=== PATIENT | male | born 1985 | race Caucasian/White ===

== ENCOUNTER 2017-02-02 20:47 | Emergency (ER) | payer MEDICARE, OTHER ==
[~2017-02-02] VITALS: Ht 185.4 cm; Wt 117.9 kg
[2017-02-02 20:50] VITALS: BP 138/82
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
[2017-02-02] MEDS ORDERED: NAPR500T PO (21:30)
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
== END 2017-02-02 21:45 | disposition home or self-care (01) ==
LOC: ER 20:47
DX: S60.511A Abrasion of right hand, initial encounter (principal); S00.31XA Abrasion of nose, initial encounter; Y08.89XA Assault by other specified means, initial encounter; Y93.89 Activity, other specified; Y92.64 Mine or pit as the place of occurrence of the external cause; Y99.8 Other external cause status
CPT/HCPCS: 73130; 99284

== ENCOUNTER 2020-01-06 13:52 | Emergency (ER) | payer OTHER ==
[~2020-01-06] VITALS: Ht 185.4 cm; Wt 127.0 kg
[~2020-01-06 13:52] MED LIST: NAPR-683 PO
[2020-01-06 14:25] VITALS: BP 135/81
--- NOTE | 2020-01-06 14:56 | PHYS DOC ---
Past Medical History Past Medical History: No Pertinent History, Asthma (ALYSSA BLAIR KEG INSPECTOR) Past Surgical History: Other Additional Past Surgical Histo: R LEG FX (ALYSSA BLAIR KEG INSPECTOR) Smoking Status: Current Every Day Smoker Alcohol Use: Occasionally Drug Use: Marijuana (ALYSSA BLAIR KEG INSPECTOR) General Adult EDM: Chief Complaint: LACERATION/AVULSION HPI: HPI: Patient is a 34 year old male who presents with abrasion to left chest right above the nipple. No deformity to the nipple and no bruising noted. No pain with palpation or swelling. Patient reports that prior to arrival he was lifting a toilet when the toilet full backwards onto him and scratched his left chest. Patient is denying pain currently. Patient was concerned because he believes that he might need a suture. Patient is unsure when his last tetanus shot was. (ALYSSA BLAIR KEG INSPECTOR) Review of Systems: Review of Systems: Constitutional: Denies fever or chills. [] Eyes: Denies change in visual acuity. [] HENT: Denies nasal congestion or sore throat. [] Respiratory: Denies cough or shortness of breath. [] Cardiovascular: Denies chest pain or edema. [] GI: Denies abdominal pain, nausea, vomiting, bloody stools or diarrhea. [] : Denies dysuria. [] Musculoskeletal: Denies back pain or joint pain. [] Integument: Denies rash. Superficial laceration to left chest. [] Neurologic: Denies headache, focal weakness or sensory changes. [] Endocrine: Denies polyuria or polydipsia. [] Lymphatic: Denies swollen glands. [] Psychiatric: Denies depression or anxiety. [] (ALYSSA BLAIR KEG INSPECTOR) Heart Score: Risk Factors: Risk Factors: DM, Current or recent (<one month) smoker, HTN, HLP, family history of CAD, obesity. Risk Scores: Score 0 - 3: 2.5% MACE over next 6 weeks - Discharge Home Score 4 - 6: 20.3% MACE over next 6 weeks - Admit for Clinical Observation Score 7 - 10: 72.7% MACE over next 6 weeks - Early Invasive Strategies (ALYSSA BLAIR KEG INSPECTOR) Allergies: Allergies: Allergies Coded Allergies Type Severity Reaction Last Updated Verified No Known Drug Allergies 02/02/17 No (ALYSSA BLAIR APRN) Physical Exam: PE: Constitutional: Well developed, well nourished, no acute distress, non-toxic appearance. [] HENT: Normocephalic, atraumatic, bilateral external ears normal, oropharynx moist, no oral exudates, nose normal. [] Eyes: PERRLA, EOMI, conjunctiva normal, no discharge. [] Neck: Normal range of motion, no tenderness, supple, no stridor. [] Cardiovascular:Heart rate regular rhythm, no murmur [] Lungs & Thorax: Bilateral breath sounds clear to auscultation [] Abdomen: Bowel sounds normal, soft, no tenderness, no masses, no pulsatile antonette s. [] Skin: Warm, dry, no erythema, no rash. Superficial laceration right above the left nipple. [] Back: No tenderness, no CVA tenderness. [] Extremities: No tenderness, no cyanosis, no clubbing, ROM intact, no edema. [] Neurologic: Alert and oriented X 3, normal motor function, normal sensory function, no focal deficits noted. [] Psychologic: Affect normal, judgement normal, mood normal. [] (ALYSSA BLAIR APRN) Current Patient Data: Vital Signs: Vital Signs Date Time Temp Pulse Resp B/P (MAP) Pulse Ox O2 Delivery O2 Flow Rate FiO2 01/06/20 14:25 99.1 69 16 135/81 (99) 97 Room Air 99.1 (ALYSSA BLAIR APRN) EKG: EKG: [] (ALYSSA BLAIR APRN) Radiology/Procedures: Radiology/Procedures: [] (ALYSSA BLAIR APRN) Course & Med Decision Making: Course & Med Decision Making Pertinent Labs and Imaging studies reviewed. (See chart for details) Alert and oriented. Speaks in full complete sentences. Ambulatory with a steady gait. Edges are approximated and there is no signs of infections. The laceration is very superficial there is no depth. I am not able to pull it open. Laceration is half a centimeter long. No foreign bodies. No sutures are needed. Dermabond is not needed. Area cleaned with chlorhexidine. Patient Is given a tetanus shot in the ED. [] (ALYSSA BLAIR APRN) Geraldo Disclaimer: Dragshane Disclaimer: This electronic medical record was generated, in whole or in part, using a voice recognition dictation system. (ALYSSA BLAIR APRN) Departure Departure Impression: Primary Impression: Laceration Disposition: 01 HOME, SELF-CARE Condition: STABLE Referrals: NO PCP (PCP) Patient Instructions: Laceration Care, Adult Additional Instructions: Keep the area clean and covered. Watch for signs of infection. Follow-up with primary care doctor if needed. Justicifation of Admission Dx: Justifications for Admission: Justification of Admission Dx: N/A (ALYSSA BLAIR APRN) Attending Signature Attending Signature I have participated in the care of this patient and I have reviewed and agree with all pertinent clinical information above including history, exam, and recommendations. (HANNAH SUERO DO) ALYSSA BLAIR APRN Jan 06, 2020 14:55 HANNAH SUERO DO Jan 06, 2020 16:08
[2020-01-06] MEDS ORDERED: DIPH,PERTUSS(ACELL),TET VAC/PF 0.5 ML SYRINGE. VAX IM ONE (15:00)
== END 2020-01-06 15:08 | disposition home or self-care (01) ==
LOC: ER 13:52
DX: S21.111A Laceration without foreign body of right front wall of thorax without penetration into thoracic cavity, initial encounter (principal); R60.0 Localized edema; J45.909 Unspecified asthma, uncomplicated; F17.200 Nicotine dependence, unspecified, uncomplicated; F12.90 Cannabis use, unspecified, uncomplicated; Z98.890 Other specified postprocedural states; X50.0XXA Overexertion from strenuous movement or load, initial encounter; Y93.89 Activity, other specified; Y92.89 Other specified places as the place of occurrence of the external cause; Y99.8 Other external cause status
CPT/HCPCS: 90471; 90715; 99283

== ENCOUNTER 2020-10-30 19:55 | Emergency (ER) | payer OTHER ==
[~2020-10-30] VITALS: Ht 185.4 cm; Wt 102.3 kg
[2020-10-30] MEDS: HYDROcodone/APAP 5/325MG 1 TAB TABLET PO ONE (21:01)
[2020-10-30] MEDS: NEOMY/BACITR/POLYMYXIN OINT PACKET. TP ONE (21:02)
[2020-10-30] MEDS: LIDOCAINE 2%/EPI 1:100,000 20 ML VIAL. INJ ONE (21:02)
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
[2020-10-30] MEDS ORDERED: CEPH500C PO (22:27)
[2020-10-30] MEDS ORDERED: HYDR-2761 PO (22:27)
[2020-10-30 22:30] VITALS: BP 122/67
== END 2020-10-30 22:30 | disposition home or self-care (01) ==
LOC: ER 19:55
DX: S01.111A Laceration without foreign body of right eyelid and periocular area, initial encounter (principal); S60.511A Abrasion of right hand, initial encounter; S20.211A Contusion of right front wall of thorax, initial encounter; S80.211A Abrasion, right knee, initial encounter; J45.909 Unspecified asthma, uncomplicated; F17.200 Nicotine dependence, unspecified, uncomplicated; F12.90 Cannabis use, unspecified, uncomplicated; Z98.890 Other specified postprocedural states; W22.8XXA Striking against or struck by other objects, initial encounter; Y93.89 Activity, other specified; Y92.89 Other specified places as the place of occurrence of the external cause; Y99.8 Other external cause status
CPT/HCPCS: 12011; 70450; 71101; 72125; 99285; J3490

== ENCOUNTER 2020-11-08 18:27 | Emergency (ER) | payer OTHER ==
[~2020-11-08] VITALS: Ht 177.8 cm; Wt 90.1 kg
[~2020-11-08 18:27] MED LIST changes: +CEPH500C PO; +HYDR-2761 PO
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
[2020-11-08 19:40] VITALS: BP 134/72
== END 2020-11-08 19:47 | disposition home or self-care (01) ==
LOC: ER 18:27
DX: S01.81XD Laceration without foreign body of other part of head, subsequent encounter (principal); J45.909 Unspecified asthma, uncomplicated; F17.200 Nicotine dependence, unspecified, uncomplicated; X58.XXXD Exposure to other specified factors, subsequent encounter
CPT/HCPCS: 99281

== ENCOUNTER 2021-01-15 17:52 | Emergency (ER) | payer OTHER ==
[~2021-01-15] VITALS: Ht 182.9 cm; Wt 109.1 kg
[2021-01-15] MEDS ORDERED: predniSONE 10 MG TABLET PO ONE (19:00)
[2021-01-15 19:35] VITALS: BP 127/75
--- NOTE | 2021-01-15 19:52 | RAD ---
Exam: CT maxillofacial without contrast INDICATION: Trauma to nose, bee sting TECHNIQUE: Sequential axial images through the face obtained without IV contrast. Sagittal and ni l reformatted images were reconstructed from the axial data and reviewed. Exposure: One or more of the following in the visualized dose reduction techniques were utilized for this examination: 1. Automated exposure control 2. Adjustment of the MA and/or KV according to patient size 3. Use of iterative of reconstructive technique Comparisons: CT head without contrast 10/30/2020 FINDINGS: Visualized intracranial structures are unremarkable. Visualized portions of the paranasal sinuses and mastoid air cells are well-pneumatized. Globes and o rbital contents are normal. There is edema involving the soft tissues of the left nostril. No focal fluid collection identified. No acute or healed fractures. IMPRESSION: Mild soft tissue swelling involving the left nostril. No focal fluid collection or radiopaque foreign body identified. Electronically signed by: Anahi Kim MD (01/15/2021 7:49 PM) [facility]
[2021-01-15] MEDS ORDERED: PRED50TA PO (20:23)
--- NOTE | 2021-01-15 20:24 | ED.ADGEN ---
Past Medical History Past Medical History: Asthma Past Surgical History: Other Additional Past Surgical Histo: R LEG FX Smoking Status: Current Every Day Smoker Alcohol Use: Occasionally Drug Use: Marijuana General Adult EDM: Chief Complaint: INSECT BITE HPI: HPI: Patient is a 35 year old male who presents to the emergency department with concerns of a bead being stuck up the left side of his nose. Patient states he felt something fly up his nose and staying him. Since then the left side of his nose has been swollen and itchy. He denies any shortness of breath, wheezing, nasal bleeding, nausea, vomiting, ear pain, or fever. Patient denies feeling the insect move around in his nose. Patient reports concerned that the bee is stuck inside of his nose. He denies any difficulty breathing through his nose. Patient currently rates the pain a 5 out of 10 and describes it as a burning sensation. He denies any alleviating factors. Review of Systems: Review of Systems: Complete ROS is negative unless otherwise noted in HPI. Current Medications: Current Medications Medications (Trade) Dose Ordered Sig/Erica Start Time Stop Time Status Last Admin Dose Admin Prednisone (Prednisone) 50 mg 1X ONCE 01/15/21 19:00 01/15/21 19:01 DC 01/15/21 19:24 50 MG Allergies: Allergies: Allergies Coded Allergies Type Severity Reaction Last Updated Verified No Known Drug Allergies 02/02/17 No Physical Exam: PE: See Above Constitutional: Well developed, well nourished, no acute distress, non-toxic mohit earance, anxious. [] HENT: Normocephalic, atraumatic, bilateral external ears normal; using a nasal speculum I was able to evaluate the inside of the patient's left nare, there was moderate erythema and swelling, no visible foreign body, no active bleeding, no visible insect; Eyes: PERRLA, EOMI, conjunctiva normal, no discharge. [] Neck: Normal range of motion, no stridor. [] Cardiovascular:Heart rate regular rhythm Lungs & Thorax: Respirations even and unlabored, no retractions, no respiratory distress, no wheeze Skin: Warm, dry: moderate erythema and edema to the left maxillary sinus and left consistent with an allergic reaction Extremities: No cyanosis, ROM intact, no edema. [] Neurologic: Alert and oriented X 3, normal motor, normal sensory, no focal deficits noted. [] Psychologic: Affect normal, judgement normal, mood normal. [] Current Patient Data: Vital Signs: Vital Signs Date Time Temp Pulse Resp B/P (MAP) Pulse Ox O2 Delivery O2 Flow Rate FiO2 01/15/21 18:55 98.4 71 20 152/70 (92) 97 Room Air 98.4 EKG: EKG: [] Heart Score: C/O Chest Pain: No Risk Scores: Score 0 - 3: 2.5% MACE over next 6 weeks - Discharge Home Score 4 - 6: 20.3% MACE over next 6 weeks - Admit for Clinical Observation Score 7 - 10: 72.7% MACE over next 6 weeks - Early Invasive Strategies Radiology/Procedures: Radiology/Procedures: [] Course & Med Decision Making: Course & Med Decision Making Pertinent Labs and Imaging studies reviewed. (See chart for details) [] Dragon Disclaimer: Dragon Disclaimer: This electronic medical record was generated, in whole or in part, using a voice recognition dictation system. Departure Departure Impression: Primary Impression: Insect sting Additional Impression: Allergic reaction to insect sting Disposition: 01 HOME / SELF CARE / HOMELESS Condition: STABLE Referrals: NO PCP (PCP) Patient Instructions: Insect Sting Allergy Additional Instructions: Fill the prescription and take it as directed you may also take [id number] antihistamine such as Claritin, Zyrtec, or Ivy. Apply ice to the swollen area to help reduce swelling and pain. Follow-up with your primary care doctor next week, return to the ER if symptoms worsen or fever develops. Scripts Prednisone (PREDNISONE) 50 Mg Tablet 1 TAB PO DAILY for 4 Days, #4 TAB 0 Refills Prov: LETICIA QUREHSI OPERATIONS ACCOUNTANT 01/15/21 Problem Qualifiers Primary Impression: Insect sting Encounter type: initial encounter Injury intent: accidental or unintentional Qualified Codes: T63.481A - Toxic effect of venom of other arthropod, accidental (unintentional), initial encounter Additional Impression: Allergic reaction to insect sting Encounter type: initial encounter Injury intent: accidental or unintentional Qualified Codes: T63.481A - Toxic effect of venom of other a rthropod, accidental (unintentional), initial encounter LETICIA QURESHI OPERATIONS ACCOUNTANT Jan 15, 2021 20:24
== END 2021-01-15 20:29 | disposition home or self-care (01) ==
LOC: ER 17:52
DX: T63.481A Toxic effect of venom of other arthropod, accidental (unintentional), initial encounter (principal); J45.909 Unspecified asthma, uncomplicated; F17.200 Nicotine dependence, unspecified, uncomplicated; Y92.89 Other specified places as the place of occurrence of the external cause
CPT/HCPCS: 70486; 99284; J7512

== ENCOUNTER 2021-02-04 08:31 | Emergency (ER) | payer OTHER ==
[~2021-02-04] VITALS: Ht 185.4 cm; Wt 105.0 kg
[~2021-02-04 08:31] MED LIST changes: +PRED50TA PO
[2021-02-04 10:23] VITALS: BP 115/74
[2021-02-04] MEDS ORDERED: DIPH,PERTUSS(ACELL),TET VAC/PF 0.5 ML SYRINGE. VAX IM ONE (11:30)
[2021-02-04] MEDS ORDERED: diphenhydrAMINE HCL 25 MG CAPSULE PO ONE (11:30)
[2021-02-04] MEDS ORDERED: IBUPROFEN 200 MG TABLET. PO ONE (11:30)
[2021-02-04] MEDS ORDERED: HYDR30CR74 TP (12:33)
[2021-02-04] MEDS ORDERED: CEPH500T PO (12:33)
--- NOTE | 2021-02-04 12:35 | PHYS DOC ---
Past Medical History Past Medical History: Asthma (TATIANNA TAYLOR APRN) Past Surgical History: Other Additional Past Surgical Histo: R LEG FX (TATIANNA TAYLOR APRN) Smoking Status: Current Every Day Smoker Alcohol Use: Occasionally Drug Use: Marijuana (TATIANNA TAYLOR APRN) Attending Signature I have participated in the care of this patient and I have reviewed and agree with all pertinent clinical information above including history, exam, and recommendations. (TIANNA PÉREZ DO) General Adult EDM: Chief Complaint: INSECT BITE HPI: HPI: Patient is a 35 year old male presents to the emergency department complaining of an infected insect bite to his abdomen that he noticed 2 days ago. Patient did not see the insect that bit him, noticed when he woke up 2 mornings ago. Patient complains of itching to the area with pain to palpation only, denies taking any medications for the pain or itching, denies any other skin rashes or lesions. Patient denies chest pain, shortness of breath, chest or nasal congestion, recent fever or chills, denies headache or dizziness, denies nausea, vomiting, diarrhea, or abdominal pain other than at the site of the insect bite with palpation. Patient reports his last tetanus immunization was greater than 5 years ago. Patient denies allergies to medications, reports taking no prescription medications at home. Patient reports receiving the COVID-19 virus vaccination. Patient denies any other physical complaints or physical concerns. (TATIANNA TAYLOR APRN) Review of Systems: Review of Systems: 14 body systems of review of systems have been reviewed. See HPI for pertinent positives and negative responses, otherwise all other systems are negative, nonpertinent or noncontributory. Constitutional: Negative except as outlined in HPI above. Skin: Negative except as outlined in HPI above. Eyes: Negative except as outlined in HPI above. HENT: Negative except as outlined in HPI above. Respiratory: Negative except as outlined in HPI above. Cardiovascular: Negative except as outlined in HPI above. GI: Negative except as outlined in HPI above. : Negative except as outlined in HPI above. Musculoskeletal: Negative except as outlined in HPI above. Integument: Negative except as outlined in HPI above. Neurologic: Negative except as outlined in HPI above. Endocrine: Negative except as outlined in HPI above. Lymphatic: Negative except as outlined in HPI above. Psychiatric: Negative except as outlined in HPI above. (TATIANNA TAYLOR APRN) Heart Score: C/O Chest Pain: No Risk Factors: Risk Factors: DM, Current or recent (<one month) smoker, HTN, HLP, family history of CAD, obesity. Risk Scores: Score 0 - 3: 2.5% MACE over next 6 weeks - Discharge Home Score 4 - 6: 20.3% MACE over next 6 weeks - Admit for Clinical Observation Score 7 - 10: 72.7% MACE over next 6 weeks - Early Invasive Strategies (TATIANNA TAYLOR APRN) Current Medications: Current Medications Medications (Trade) Dose Ordered Sig/Erica Start Time Stop Time Status Last Admin Dose Admin Diphenhydramine HCl (Benadryl) 25 mg 1X ONCE 02/04/21 11:30 02/04/21 11:31 DC Diphtheria/ Tetanus/Acell Pertussis (ADACEL TDap SYRINGE) 0.5 ml ONCE ONCE 02/04/21 11:30 02/04/21 11:31 DC Ibuprofen (Motrin) 600 mg 1X ONCE 02/04/21 11:30 02/04/21 11:31 DC (TATIANNA TAYLOR APRN) Allergies: Allergies: Allergies Coded Allergies Type Severity Reaction Last Updated Verified No Known Drug Allergies 02/02/17 No (TATIANNA TAYLOR APRN) Physical Exam: PE: Constitutional: Well developed, well nourished, no acute distress, non-toxic appearance. 35-year-old male in no apparent distress. HENT: Normocephalic, atraumatic. Eyes: Conjunctiva normal, no discharge. Neck: Normal range of motion, no stridor. Cardiovascular: No cyanosis appreciated, distal cap refill less than 2 seconds. Lungs & Thorax: Patient is in no respiratory distress, no audible adventitious lung sounds appreciated. Abdomen: Nontender, no abnormalities noted. See skin note for focused assessment. Skin: Warm, dry, no erythema, no rash. 2 cm from umbilicus at the 1 o'clock position there is a 1 cm skin lesion skin intact nondraining circular area of erythema vesicular in nature, clear demarcated borders with induration, no lymphangitis appreciated with central punctum. Back: No tenderness, no deformities. Extremities: No tenderness, no cyanosis, no clubbing, ROM intact, no edema. Neurologic: Alert and oriented X 3, normal motor function, normal sensory function, no focal deficits noted. Psychologic: Affect normal, judgement normal, mood normal. (TATIANNA TAYLOR APRN) Current Patient Data: Vital Signs: Vital Signs Date Time Temp Pulse Resp B/P (MAP) Pulse Ox O2 Delivery O2 Flow Rate FiO2 02/04/21 10:23 97.1 65 12 115/74 (92) 97 Room Air 97.1 (TATIANNA TAYLOR APRN) EKG: EKG: [] (TATIANNA TAYLOR APRN) Radiology/Procedures: Radiology/Procedures: [] (TATIANNA TAYLOR APRN) Course & Med Decision Making: Course & Med Decision Making Pertinent Labs and Imaging studies reviewed. (See chart for details) 35-year-old male, vital signs reviewed, presents to the emergency department concerning an insect bite to his abdomen. Physical examination consistent with patient's chief complaint, concerning for insect bite of unknown origin, there is no eschar, skin is intact, there is erythema with vesicular lesion with induration. We will treat with p.o. Keflex, bring tetanus immunization up-to-date with Adacel/Tdap, ibuprofen for pain, Benadryl for itching, prescription for antibiotics Keflex oral to cover for skin cellulitis, hydrocortisone cream applications. Strict follow-up with PCP for reevaluation, will give quested work excuse. This is unlikely a brown spider bite or poisonous insect bite related to patient's normal vital signs, neurologically intact, neurovascular intact, no eschar or skin erosion at lesion site. Discussed with the patient all findings and diagnostic testing as well as the need to follow-up with their primary care provider for further evaluation and treatment or return to the ED if any new or worsening symptoms. Strict return precautions were also discussed at length, the patient voiced understanding and agreement with the discharge planning. The patient was nontoxic in appearance, in no apparent distress, and hemodynamically stable at the time of disposition. (TATIANNA TAYLOR APRN) Dragon Disclaimer: Dragon Disclaimer: This electronic medical record was generated, in whole or in part, using a voice recognition dictation system. (TATIANNA TAYLOR APRN) Departure Departure Impression: Primary Impression: Insect bite (nonvenomous) of abdominal wall, initial encounter Disposition: HOME / SELF CARE / HOMELESS Condition: GOOD Referrals: NO PCP (PCP) Patient Instructions: Insect Bite Additional Instructions: You were seen today in the emergency department for a insect bite to your abdomen. You are being treated with a prescription for an oral antibiotic that you will take 4 times a day for 7 days, please take as directed and complete the antibiotic regimen, I am also prescribing you a topical ointment to place on daily, you may use [id number] Benadryl for itching and hqml-gwq-jzzmbmb Tylenol and/or Motrin for discomfort and pain. Please follow-up with your doctor this week for reevaluation of your insect bite wound. Thank you for visiting our Emergency Department. It was a pleasure taking care of you today in the emergency department and we appreciate you trusting us with your care. If any additional problems come up don't hesitate to return to visit us. Please follow up with your primary care provider so they can plan additional care if needed and know about the problem that you had. If symptoms worsen come back to the Emergency Department. Any concerning symptoms that start such as chest pain, shortness of air, weakness or numbness on one side of the body, running high fevers or any other concerning symptoms return to the ER. EMERGENCY DEPARTMENT GENERAL DISCHARGE INSTRUCTIONS Thank you for coming to [facility] Emergency Department (ED) today and trusting us with you care. We trust that you had a positive experience in our Emergency Department. If you wish to speak to the department management, you may call the Director at [phone]. YOUR FOLLOW UP INSTRUCTIONS ARE FOLLOWS: 1. Do you have a private Doctor? If you do not have a private doctor, please ask for a resource list of physicians or clinics that may be able to assist you with follow up care. 2. The Emergency Physicain has interpreted your x-rays. The X-Ray specialist will also review them. If there is a change in the findings, you will be notified in 48 hours when at all possible. 3. A lab test or culture has been done, your results will be reviewed and you will be notified if you need a change in treatment. ADDITIONAL INSTRUCTIONS AND INFORMATION: 1. Your care today has been supervised by a physician who is specially trained in emergency care. Many problems require more than one evaluation for a complete diagnosis and treatment. We recommend that you schedule your follow up appointment as recommended to ensure complete treatment of you illness or injury. If you are unable to obtain follow up care and continue to have a problem, or if your condition worsens, we recommend that you return to the ED. 2. We are not able to safely determine your condition over the phone nor are we able to give sound medical advice over the phone. For these safety reasons, if you call for medical advice we will ask you to come to the ED for further evaluation. 3. If you have any questions regarding these discharge instructions please call the ED at [phone]. SAFETY INFORMATION: In the interest of safety, wellness, and injury prevention; we encourage you to wear your sealbelt, if you smoke; quite smoking, and we encourage family to use a protective helmet for bicycling and other sporting events that present an increased risk for head injury. IF YOUR SYMPTOMS WORSEN OR NEW SYMPTOMS DEVELOP, OR YOU HAVE CONCERNS ABOUT YOUR CONDITION; OR IF YOUR CONDITION WORSENS WHILE YOU ARE WAITING FOR YOUR FOLLOW UP APPOINTMENT; EITHER CONTACT YOUR PRIMARY CARE DOCTOR, THE PHYSICIAN WHOSE NAME AND NUMBER YOU WERE GIVEN, OR RETURN TO THE ED IMMEDIATELY. Scripts Hydrocortisone (Hydrocortisone) 30 Gm Cream.appl 1 HIRAM TP BID for skin infection for 7 Days, #30 GM 0 Refills Prov: TATIANNA TAYLOR APRN 02/04/21 Cephalexin (CEPHALEXIN) 500 Mg Tablet 1 TAB PO QID for skin infection, #40 TAB 0 Refills Prov: TATIANNA TAYLOR APRN 02/04/21 Attending Signature I have participated in the care of this patient and I have reviewed and agree with all pertinent clinical information above including history, exam, and recommendations. (TIANNA PÉREZ DO) TATIANNA TAYLOR APRN Feb 04, 2021 12:35 TIANNA PÉREZ DO Feb 04, 2021 13:08
== END 2021-02-04 12:40 | disposition home or self-care (01) ==
LOC: ER 08:31
DX: S30.861A Insect bite (nonvenomous) of abdominal wall, initial encounter (principal); W57.XXXA Bitten or stung by nonvenomous insect and other nonvenomous arthropods, initial encounter; Y93.89 Activity, other specified; Y92.89 Other specified places as the place of occurrence of the external cause; Y99.8 Other external cause status
CPT/HCPCS: 90471; 90715; 99283; Q0163

== ENCOUNTER 2021-06-13 13:03 | Emergency (ER) | payer OTHER ==
[~2021-06-13] VITALS: Ht 185.4 cm; Wt 86.3 kg
[~2021-06-13 13:03] MED LIST changes: +CEPH500T PO; +HYDR30CR74 TP
[2021-06-13 14:13] VITALS: BP 146/65
--- NOTE | 2021-06-13 14:20 | PHYS DOC ---
Past Medical History Past Medical History: Asthma Past Surgical History: Other Additional Past Surgical Histo: R LEG FX Smoking Status: Never Smoker Alcohol Use: None Drug Use: Marijuana General Adult EDM: Chief Complaint: COUGH HPI: HPI: Patient is a 35 year old male current smoker who presents to the ED today complaining of a productive cough for 2 days. Patient denies any fever. Denies any nasal congestion. Reports posttussis emesis. Review of Systems: Review of Systems: Constitutional: Denies fever or chills. [] Eyes: Denies change in visual acuity. [] HENT: Denies nasal congestion or sore throat. [] Respiratory: Reports cough, denies shortness of breath. [] Cardiovascular: Denies chest pain or edema. [] GI: Reports posttussis emesis. Denies abdominal pain, bloody stools or diarrhea. [] : Denies dysuria. [] Musculoskeletal: Denies back pain or joint pain. [] Integument: Denies rash. [] Neurologic: Denies headache, focal weakness or sensory changes. [] Psychiatric: Denies depression or anxiety. [] Heart Score: C/O Chest Pain: N/A Risk Factors: Risk Factors: DM, Current or recent (<one month) smoker, HTN, HLP, family history of CAD, obesity. Risk Scores: Score 0 - 3: 2.5% MACE over next 6 weeks - Discharge Home Score 4 - 6: 20.3% MACE over next 6 weeks - Admit for Clinical Observation Score 7 - 10: 72.7% MACE over next 6 weeks - Early Invasive Strategies Allergies: Allergies: Allergies Coded Allergies Type Severity Reaction Last Updated Verified No Known Drug Allergies 02/02/17 No Physical Exam: PE: Constitutional: Well developed, well nourished, no acute distress, non-toxic appearance. [] HENT: Normocephalic, atraumatic, bilateral external ears normal, oropharynx moist, no oral exudates, nose normal. [] Eyes: PERRLA, EOMI, conjunctiva normal, no discharge. [] Neck: Normal range of motion, no tenderness, supple, no stridor. [] Cardiovascular:Heart rate regular rhythm, no murmur [] Lungs & Thorax: Bilateral breath sounds clear to auscultation [] Abdomen: Bowel sounds normal, soft, no tenderness, no masses, no pulsatile masses. [] Skin: Warm, dry, no erythema, no rash. [] Back: No tenderness, no CVA tenderness. [] Extremities: No tenderness, no cyanosis, no clubbing, ROM intact, no edema. [] Neurologic: Alert and oriented X 3, normal motor function, normal sensory function, no focal deficits noted. [] Psychologic: Affect normal, judgement normal, mood normal. [] EKG: EKG: [] Radiology/Procedures: Radiology/Procedures: []PROCEDURE: CHEST PA & LATERAL XR CHEST 2V History: Reason: cough X 2 DAYS / Spl. Instructions: / History: Comparison: October 30, 2020 Findings: No consolidation or pleural effusion. Normal heart size. No pneumothorax. Impression: 1. No acute cardiopulmonary process. Electronically signed by: Erma Lopez DO (06/13/2021 2:49 PM) [facility] DICTATED and SIGNED BY: ERMA LOPEZ DO DATE: 06/13/21 [id number] 0 Course & Med Decision Making: Course & Med Decision Making Pertinent Labs and Imaging studies reviewed. (See chart for details) This is a 35-year-old male patient presented to the ED today complaining of cough and posttussis emesis, symptoms began 2 days ago. Current smoker. Encouraged to consider smoking cessation. O2 sats 97% on room air. Chest x-ray interpreted by radiologist as negative for any acute findings. Negative Covid rapid test. Discharged home. Follow-up with PCP in 1 week. Provided return precautions. Geraldo Disclaimer: Geraldo Disclaimer: This electronic medical record was generated, in whole or in part, using a voice recognition dictation system. Departure Departure Impression: Primary Impression: Cough Additional Impressions: Person under investigation for COVID-19 Post-tussive emesis Smoking addiction Disposition: HOME / SELF CARE / HOMELESS Condition: STABLE Referrals: NO PCP (PCP) Patient Instructions: Cough, Adult, [id number], Smoking Cessation, Tips For Success Additional Instructions: You were evaluated in the emergency room, your chest x-ray is negative for any acute findings, your rapid Covid test is negative, your PCR Covid test is pending. Please quarantine yourself until the PCR results are back, we will call you with the test results information when available. In the meantime maintain good hand hygiene, push fluids. Consider smoking cessation. We will send medicine for your symptoms to the pharmacy, take them as prescribed Scripts Promethazine Hcl (PROMETHAZINE HCL) 6.25 Mg/5 Ml Syrup 5 ML PO TID for motion sickness, #80 ML 0 Refills Prov: EILEEN SHERWOOD APRN 06/13/21 Benzonatate (BENZONATATE) 100 Mg Capsule 1 CAP PO TID, #30 CAP Prov: EILEEN SHERWOOD APRN 06/13/21 EILEEN SHERWOOD APRN Jun 13, 2021 14:20
--- NOTE | 2021-06-13 14:51 | RAD ---
XR CHEST 2V History: Reason: cough X 2 DAYS / Spl. Instructions: / History: Comparison: October 30, 2020 Findings: No consolidation or pleural effusion. Normal heart size. No pneumothorax. Impression: 1. No acute cardiopulmonary process. Electronically signed by: Jose Daniel Schulte DO (06/13/2021 2:49 PM) [facility]
[2021-06-13] MEDS ORDERED: BENZ-8 PO (15:11)
[2021-06-13] MEDS ORDERED: PROM6.257 PO (15:11)
--- NOTE | 2021-06-14 16:26 | NUR ---
IP: Attempted to contact pt concerning covid results. No answer, left a voicemail to return the call. Addendum: 06/14/21 at 1638 by LAVERNE ALATORRE RN Pt returned my call. Informed pt of negative covid test. Pt verbalized understanding.
== END 2021-06-13 15:20 | disposition home or self-care (01) ==
LOC: ER 13:03
DX: R05.9 Cough, unspecified (principal); Z20.822 Contact with and (suspected) exposure to COVID-19; R11.10 Vomiting, unspecified; J45.909 Unspecified asthma, uncomplicated
CPT/HCPCS: 71046; 87426; 99284; U0003; U0005